=== PATIENT | male | born 1990 | race African-American/Black ===

== ENCOUNTER 2016-04-13 22:31 | Emergency (ER) | payer SELFPAY ==
[~2016-04-13] VITALS: Ht 167.6 cm; Wt 78.0 kg
[2016-04-13 22:41] VITALS: BP 133/68
--- NOTE | 2016-04-13 22:57 | PHYS DOC ---
Past Medical History Past Medical History: No Pertinent History Past Surgical History: Other Additional Past Surgical Histo: lasik to eyes Alcohol Use: None Drug Use: None Adult General Chief Complaint Chief Complaint: LACERATION/AVULSION [facility] HPI Patient is a 26 year old who presents emergency Department today with complaint of a laceration to his left lower leg secondary to slipping and cutting it on the edge of a concrete block. He states he has been able to bear weight and walk. He states this happened approximately 3 and half hours prior to arrival. He denies any additional injuries or concerns. Patient does not remember the last time he received a tetanus shot. Review of Systems Review of Systems Constitutional: Denies fever or chills [] Eyes: Denies change in visual acuity, redness, or eye pain [] HENT: Denies nasal congestion or sore throat [] Respiratory: Denies cough or shortness of breath [] Cardiovascular: No additional information not addressed in HPI [] GI: Denies abdominal pain, nausea, vomiting, bloody stools or diarrhea [] : Denies dysuria or hematuria [] Musculoskeletal: Denies back pain or joint pain [] Integument: Denies rash or skin lesions [] Neurologic: Denies headache, focal weakness or sensory changes [] Endocrine: Denies polyuria or polydipsia [] Current Medications Current Medications Current Medications Medications (Trade) Dose Ordered Sig/Delores Start Time Stop Time Status Last Admin Dose Admin Diphtheria/ Tetanus/Acell Pertussis (Boostrix) 0.5 ml ONCE ONCE 04/13/16 23:30 04/13/16 23:31 DC 04/13/16 23:04 0.5 ML Lidocaine/Sodium Bicarbonate (Buffered Lidocaine 1%) 20 ml 1X ONCE 04/13/16 23:30 04/13/16 23:31 DC 04/13/16 23:03 20 ML Allergies Allergies Allergies Coded Allergies Type Severity Reaction Last Updated Verified No Known Drug Allergies 04/13/16 No Physical Exam Physical Exam Constitutional: Well developed, well nourished, no acute distress, non-toxic appearance. [] HENT: Normocephalic, atraumatic, bilateral external ears normal, oropharynx moist, no oral exudates, nose normal. [] Eyes: PERRLA, EOMI, conjunctiva normal, no discharge. [] Neck: Normal range of motion, no tenderness, supple, no stridor. [] Cardiovascular:Heart rate regular rhythm, no murmur [] Lungs & Thorax: Bilateral breath sounds clear to auscultation [] Abdomen: Bowel sounds normal, soft, no tenderness, no masses, no pulsatile masses. [] Skin: Warm, dry, no erythema, no rash. [] Back: No tenderness, no CVA tenderness. [] Extremities: Approximate 4 cm vertical laceration to the anterior left lower leg. Laceration extends into the subcutaneous fat. There is no active bleeding at this time. Patient's left knee and ankle are normal in appearance and nontender palpation. Fingers neurovascular intact with capillary refill less than 2 seconds. Neurologic: Alert and oriented X 3, normal motor function, normal sensory function, no focal deficits noted. [] Psychologic: Affect normal, judgement normal, mood normal. [] Current Patient Data Vital Signs Vital Signs Date Time Temp Pulse Resp B/P Pulse Ox O2 Delivery O2 Flow Rate FiO2 04/13/16 22:41 98.3 67 20 96 Room Air 98.3 EKG EKG [] Radiology/Procedures Radiology/Procedures Procedure note: 4cm laceration to the anterior aspect patient's left lower leg was anesthetized with buffered 1% lidocaine. Wound was cleansed with Betadine solution and rinsed with copious amounts of normal saline. Wound was explored for foreign bodies. No foreign bodies were found. Wound margins were approximated utilizing 4 nylon in a simple interrupted fashion of a singular closure for total of 7 stitches. Patient tolerated the procedure well. Course & Med Decision Making Course & Med Decision Making Pertinent Labs and Imaging studies reviewed. (See chart for details) [] Dragon Disclaimer Dragon Disclaimer This electronic medical record was generated, in whole or in part, using a voice recognition dictation system. Departure Departure Impression: Primary Impression: Laceration Disposition: HOME, SELF-CARE Condition: IMPROVED Patient Instructions: Diphtheria Toxoid; Tetanus Toxoid Adsorbed, DT, Td, Laceration Care, Adult, [id number] Additional Instructions: 1. Take the medication as prescribed. Be sure to complete all the antibiotic. 2. Review the discharge instructions for self-care and reasons to return to the emergency department. 3. Stitches need to be removed in 10-14 days. 4. A pamphlet is provided to you for assistance in finding a primary care doctor to address your medical concerns and provide follow-up care and stitch removal. If you're unable to follow-up with a primary care doctor, then return to the emergency department for wound evaluation and suture removal. Scripts Hydrocodone/Apap 5-325 (Soledad 5-325 Tablet)1 Each Tablet1 Tab PO PRN Q6HRS PRN PAIN #10 TAB Ref 0 Prov:LEANNE BOWMAN 04/13/16 Cephalexin 500 Mg Capsule1 Cap PO TID #30 CAP Prov:LEANNE BOWMAN 04/13/16 LEANNE BOWMAN Apr 13, 2016 22:56
[2016-04-13] MEDS ORDERED: LIDOCAINE 1% / SOD BICARB 8.4% 20 ML VIAL. IJ ONE (23:30)
[2016-04-13] MEDS ORDERED: DIPHTH,PERTUSS(ACELL),TET TOX 0.5 ML DISP.SYRIN. VAX IM ONE (23:30)
[2016-04-13] MEDS ORDERED: HYDR-971 PO (23:39)
[2016-04-13] MEDS ORDERED: CEPH500C PO (23:39)
== END 2016-04-13 23:48 | disposition home or self-care (01) ==
LOC: ER 22:31
DX: S81.812A Laceration without foreign body, left lower leg, initial encounter (principal); W26.8XXA Contact with other sharp object(s), not elsewhere classified, initial encounter; Y93.89 Activity, other specified; Y92.89 Other specified places as the place of occurrence of the external cause; Y99.8 Other external cause status
CPT/HCPCS: 12002; 90471; 90715; 99283-25

== ENCOUNTER 2016-04-28 14:11 | Emergency (ER) | payer SELFPAY ==
[~2016-04-28] VITALS: Ht 167.6 cm; Wt 78.0 kg
[~2016-04-28 14:11] MED LIST: CEPH500C PO; HYDR-971 PO
[2016-04-28 14:14] VITALS: BP 114/76
--- NOTE | 2016-04-28 14:29 | PHYS DOC ---
Past Medical History Past Medical History: No Pertinent History Past Surgical History: Other Additional Past Surgical Histo: lasik to eyes Alcohol Use: None Drug Use: None Adult General Chief Complaint Chief Complaint: SUTURE/STAPLE REMOVAL [facility] HPI Patient is a 26 year old male presents emergency Department today requesting that his sutures. From his left leg. Patient was here 10 days ago after incurred laceration to his left lower leg. I performed a laceration repair. Patient has no complaints. Review of Systems Review of Systems Constitutional: Denies fever or chills [] Eyes: Denies change in visual acuity, redness, or eye pain [] HENT: Denies nasal congestion or sore throat [] Respiratory: Denies cough or shortness of breath [] Cardiovascular: No additional information not addressed in HPI [] GI: Denies abdominal pain, nausea, vomiting, bloody stools or diarrhea [] : Denies dysuria or hematuria [] Musculoskeletal: Denies back pain or joint pain [] Integument: Denies rash or skin lesions [] Neurologic: Denies headache, focal weakness or sensory changes [] Endocrine: Denies polyuria or polydipsia [] Allergies Allergies Allergies Coded Allergies Type Severity Reaction Last Updated Verified No Known Drug Allergies 04/13/16 No Physical Exam Physical Exam Constitutional: Well developed, well nourished, no acute distress, non-toxic appearance. [] HENT: Normocephalic, atraumatic, bilateral external ears normal, oropharynx moist, no oral exudates, nose normal. [] Eyes: PERRLA, EOMI, conjunctiva normal, no discharge. [] Neck: Normal range of motion, no tenderness, supple, no stridor. [] Cardiovascular:Heart rate regular rhythm, no murmur [] Lungs & Thorax: Bilateral breath sounds clear to auscultation [] Abdomen: Bowel sounds normal, soft, no tenderness, no masses, no pulsatile masses. [] Skin: Well-healing laceration to patient's anterior left lower leg. There is no erythema, purulent drainage or swelling. There is no wound margin separation. Back: No tenderness, no CVA tenderness. [] Extremities: No tenderness, no cyanosis, no clubbing, ROM intact, no edema. [] Neurologic: Alert and oriented X 3, normal motor function, normal sensory function, no focal deficits noted. [] Psychologic: Affect normal, judgement normal, mood normal. [] Current Patient Data Vital Signs Vital Signs Date Time Temp Pulse Resp B/P Pulse Ox O2 Delivery O2 Flow Rate FiO2 04/28/16 14:14 97.8 75 16 98 Room Air 97.8 EKG EKG [] Radiology/Procedures Radiology/Procedures 7 sutures removed by nursing staff without any difficulty. Course & Med Decision Making Course & Med Decision Making Pertinent Labs and Imaging studies reviewed. (See chart for details) [] Dragon Disclaimer Dragon Disclaimer This electronic medical record was generated, in whole or in part, using a voice recognition dictation system. Departure Departure Impression: Primary Impression: Visit for suture removal Disposition: HOME, SELF-CARE Condition: IMPROVED Referrals: NO PCP (PCP) Patient Instructions: Suture Removal-Brief Additional Instructions: 1. The laceration appears to be healing well without any difficulties. 2. Be sure to keep the area clean and dry. 3. Follow-up with a primary care doctor through his any concerns for additional wound healing. LEANNE BOWMAN Apr 28, 2016 14:29
== END 2016-04-28 14:37 | disposition home or self-care (01) ==
LOC: ER 14:11
DX: S81.812D Laceration without foreign body, left lower leg, subsequent encounter (principal); X58.XXXD Exposure to other specified factors, subsequent encounter; Y92.89 Other specified places as the place of occurrence of the external cause; Y99.8 Other external cause status
CPT/HCPCS: 99281